=== PATIENT | male | born 1975 | race Caucasian/White ===

== ENCOUNTER 2017-10-12 23:26 | Emergency (ER) | payer OTHER | END 2017-10-13 03:15 | disposition home or self-care (01) | LOC: FTE 23:26 | DX: L02.211 Cutaneous abscess of abdominal wall (principal); Z87.891 Personal history of nicotine dependence | CPT/HCPCS: 99283 ==

== ENCOUNTER 2017-10-19 21:32 | Emergency (ER) | payer OTHER | END 2017-10-20 01:14 | disposition home or self-care (01) | LOC: FTE 21:32 | DX: L08.9 Local infection of the skin and subcutaneous tissue, unspecified (principal); F17.210 Nicotine dependence, cigarettes, uncomplicated; B95.62 Methicillin resistant Staphylococcus aureus infection as the cause of diseases classified elsewhere | CPT/HCPCS: 99283; Z7502 ==

== ENCOUNTER 2018-01-31 03:30 | Emergency (ER) | payer OTHER | END 2018-01-31 04:21 | disposition home or self-care (01) | LOC: FTE 03:30 | DX: Z76.0 Encounter for issue of repeat prescription (principal); F17.210 Nicotine dependence, cigarettes, uncomplicated | CPT/HCPCS: 99281; Z7502 ==

== ENCOUNTER 2018-05-09 03:42 | Inpatient (IN) | payer OTHER ==
[2018-05-09 04:50] LABS: ADD MAN DIFF? NO
[2018-05-09 04:52] LABS: BASOPHIL # 0.1 10^3/ul (0.0-0.1); BASOPHILS % 0.8 % (0.0-2.0); EOSINOPHILS # 0.3 10^3/ul (0.0-0.5); EOSINOPHILS % 3.5 % (0.0-7.0); HEMATOCRIT 39.5 % (42.0-52.0); HEMOGLOBIN 12.4 g/dl (14.0-18.0); LYMPHOCYTES # 2.1 10^3/ul (0.8-2.9); LYMPHOCYTES % 24.3 % (15.0-51.0); MEAN CORPUSCULAR HEMOGLOBIN 27.6 pg (29.0-33.0); MEAN CORPUSCULAR HGB CONC 31.4 g/dl (32.0-37.0); MEAN CORPUSCULAR VOLUME 87.8 fl (82.0-101.0); MEAN PLATELET VOLUME 9.5 fl (7.4-10.4); MONOCYTE # 0.9 10^3/ul (0.3-0.9); MONOCYTES % 10.3 % (0.0-11.0); NEUTROPHIL # 5.2 10^3/ul (1.6-7.5); NEUTROPHILS % 60.9 % (39.0-77.0); PLATELET COUNT 296 10^3/UL (140-415)
[2018-05-09 04:52] LABS: WHITE BLOOD COUNT 8.5 10^3/ul (4.8-10.8)
[2018-05-09] MEDS: FUROSEMIDE 40 MG INJ IV ×2 (04:52→17:20)
[2018-05-09 05:16] LABS: ALANINE AMINOTRANSFERASE 35 IU/L (13-69); ALBUMIN 3.5 g/dl (3.3-4.9); ALKALINE PHOSPHATASE 118 IU/L (42-121); ANION GAP 11 (5-13); ASPARTATE AMINO TRANSFERASE 36 IU/L (15-46); BILIRUBIN,INDIRECT 0.6 mg/dl (0-1.1); BILIRUBIN,TOTAL 0.6 mg/dl (0.2-1.3); BLOOD UREA NITROGEN 26 mg/dl (7-20); CALCIUM 8.9 mg/dl (8.4-10.2); CARBON DIOXIDE 22 mmol/L (21-31); CHLORIDE 107 mmol/L (97-110); CREATININE 1.22 mg/dl (0.61-1.24); Estimated GFR > 60 mL/min (>60); GLUCOSE 89 mg/dl (70-220); POTASSIUM 3.8 mmol/L (3.5-5.1); SODIUM 140 mmol/L (135-144)
[2018-05-09 05:28] LABS: B-TYPE NATRIURETIC PEPTIDE 3670 PG/ML (0-125); TROPONIN-I 0.027 ng/ml (0.000-0.120)
[2018-05-09] MEDS ORDERED: NITROGLYCERIN (SL) 0.4 MG TAB SL (07:30)
[2018-05-09] MEDS ORDERED: ALBUTEROL/IPRATROPIUM (NEB) 3 ML AMP HHN (07:30)
[2018-05-09] MEDS ORDERED: NACL 0.9% 3 ML SYG IV (07:30)
[2018-05-09] MEDS ORDERED: ACETAMINOPHEN 325 MG TAB PO (07:30)
[2018-05-09] MEDS ORDERED: ONDANSETRON 4 MG INJ IV (07:30)
[2018-05-09] MEDS: ENOXAPARIN 40 MG/0.4 ML SYG SC (08:35)
[2018-05-09 08:40] LABS: CREATINE KINASE 219 IU/L (23-200)
[2018-05-09 08:53] LABS: CK INDEX 1.2; TROPONIN-I 0.015 ng/ml (0.000-0.120)
[2018-05-09 08:54] LABS: CK-MB 2.55 ng/ml (0.0-2.4)
[2018-05-09 14:19] LABS: CREATINE KINASE 87 IU/L (23-200)
[2018-05-09 14:32] LABS: CK INDEX 2.2; CK-MB 1.91 ng/ml (0.0-2.4); TROPONIN-I < 0.012 ng/ml (0.000-0.120)
[2018-05-09] MEDS ORDERED: FUROSEMIDE 20 MG INJ IV (18:00)
[2018-05-10 05:28] LABS: ADD MAN DIFF? NO
[2018-05-10 05:36] LABS: WHITE BLOOD COUNT 8.6 10^3/ul (4.8-10.8)
[2018-05-10 05:36] LABS: BASOPHIL # 0.1 10^3/ul (0.0-0.1); BASOPHILS % 0.9 % (0.0-2.0); EOSINOPHILS # 0.5 10^3/ul (0.0-0.5); EOSINOPHILS % 5.6 % (0.0-7.0); HEMATOCRIT 40.5 % (42.0-52.0); HEMOGLOBIN 12.7 g/dl (14.0-18.0); LYMPHOCYTES # 2.4 10^3/ul (0.8-2.9); MEAN CORPUSCULAR HEMOGLOBIN 27.5 pg (29.0-33.0); MEAN CORPUSCULAR HGB CONC 31.4 g/dl (32.0-37.0); MEAN CORPUSCULAR VOLUME 87.7 fl (82.0-101.0); MEAN PLATELET VOLUME 9.6 fl (7.4-10.4); MONOCYTE # 0.9 10^3/ul (0.3-0.9); MONOCYTES % 10.2 % (0.0-11.0); NEUTROPHIL # 4.7 10^3/ul (1.6-7.5); NEUTROPHILS % 54.9 % (39.0-77.0); PLATELET COUNT 321 10^3/UL (140-415); RED BLOOD COUNT 4.62 10^6/ul (4.70-6.10); RED CELL DISTRIBUTION WIDTH 15.9 % (11.5-14.5)
[2018-05-10] MEDS: FUROSEMIDE 40 MG INJ IV ×2 (06:07→18:34)
[2018-05-10 06:32] LABS: ALANINE AMINOTRANSFERASE 29 IU/L (13-69); ALBUMIN 3.3 g/dl (3.3-4.9); ALKALINE PHOSPHATASE 99 IU/L (42-121); ANION GAP 9 (5-13); ASPARTATE AMINO TRANSFERASE 39 IU/L (15-46); BILIRUBIN,INDIRECT 0.5 mg/dl (0-1.1); BILIRUBIN,TOTAL 0.5 mg/dl (0.2-1.3); BLOOD UREA NITROGEN 28 mg/dl (7-20); CALCIUM 8.6 mg/dl (8.4-10.2); CARBON DIOXIDE 25 mmol/L (21-31); CHLORIDE 104 mmol/L (97-110); CHOL/HDL RATIO 4.3 RATIO; CHOLESTEROL 109 mg/dl (100-200); CREATININE 1.21 mg/dl (0.61-1.24); Estimated GFR > 60 mL/min (>60); GLUCOSE 102 mg/dl (70-220); HDL CHOLESTEROL 25 mg/dl (27-67); LDL CHOLESTEROL,CALCULATED 63 mg/dl; POTASSIUM 4.2 mmol/L (3.5-5.1); SODIUM 138 mmol/L (135-144); TOTAL PROTEIN 6.6 g/dl (6.1-8.1); TRIGLYCERIDES 106 mg/dl (0-149)
[2018-05-10] MEDS: LISINOPRIL 5 MG TAB PO (08:32)
[2018-05-10] MEDS: ENOXAPARIN 40 MG/0.4 ML SYG SC (08:45)
[2018-05-11] MEDS: FUROSEMIDE 40 MG INJ IV (05:43)
[2018-05-11 06:25] LABS: ANION GAP 8 (5-13); BLOOD UREA NITROGEN 31 mg/dl (7-20); CALCIUM 8.9 mg/dl (8.4-10.2); CARBON DIOXIDE 27 mmol/L (21-31); CHLORIDE 103 mmol/L (97-110); CREATININE 1.25 mg/dl (0.61-1.24); Estimated GFR > 60 mL/min (>60); GLUCOSE 113 mg/dl (70-220); POTASSIUM 3.9 mmol/L (3.5-5.1); SODIUM 138 mmol/L (135-144)
[2018-05-11] MEDS: LISINOPRIL 5 MG TAB PO (09:18)
[2018-05-11] MEDS: ENOXAPARIN 40 MG/0.4 ML SYG SC (09:23)
[2018-05-12] MEDS ORDERED: LISINOPRIL 10 MG TAB PO (09:00)
== END 2018-05-11 14:20 | disposition home or self-care (01) | DRG 293 ==
LOC: E/R 03:42 → 6WM 05:41
DX: I50.23 Acute on chronic systolic (congestive) heart failure (principal); I25.5 Ischemic cardiomyopathy; B19.20 Unspecified viral hepatitis C without hepatic coma; K80.80 Other cholelithiasis without obstruction; F14.90 Cocaine use, unspecified, uncomplicated; F15.90 Other stimulant use, unspecified, uncomplicated; Z72.0 Tobacco use; E66.9 Obesity, unspecified; Z68.35 Body mass index [BMI] 35.0-35.9, adult; Z91.14 Patient's other noncompliance with medication regimen
CPT/HCPCS: 71045; 80048; 80053; 80061; 82550; 82553; 83036; 83735; 83880; 84443; 84484; 85025; 93005; 93306; 96374; 99285-25

== ENCOUNTER 2018-07-04 01:00 | Emergency (ER) | payer OTHER | END 2018-07-04 03:16 | disposition home or self-care (01) | LOC: FTE 01:00 | DX: L40.0 Psoriasis vulgaris (principal); F17.210 Nicotine dependence, cigarettes, uncomplicated; I50.9 Heart failure, unspecified; Z79.82 Long term (current) use of aspirin | CPT/HCPCS: 99283; Z7502 ==